=== PATIENT | female | born 1945 | race Two or more races ===

== ENCOUNTER 2022-08-31 18:30 | Emergency (ER) | payer OTHER ==
[~2022-08-31] VITALS: Ht 152.4 cm; Wt 67.7 kg
[2022-08-31 23:52] VITALS: BP 130/67
[2022-09-01] MEDS ORDERED: methylPREDNISolone SOD SUCC 125 MG/2 ML VL IM ONE
[2022-09-01] MEDS ORDERED: IPRATROPIUM BROM 0.5 MG/2.5ML INH SOL NEB ONE (01:00)
[2022-09-01] MEDS ORDERED: ALBUTEROL SULF 2.5 MG/0.5ML(0.5%) NEB SOLN NEB ONE (01:00)
[2022-09-01] MEDS ORDERED: IBUP600T27 PO (01:32)
[2022-09-01] MEDS ORDERED: AMOX-277 PO (01:32)
== END 2022-09-01 | disposition home or self-care (01) ==
LOC: ER 18:30
DX: H66.011 Acute suppurative otitis media with spontaneous rupture of ear drum, right ear (principal); R05.9 Cough, unspecified; E11.9 Type 2 diabetes mellitus without complications; R06.02 Shortness of breath; R07.89 Other chest pain; Z20.822 Contact with and (suspected) exposure to COVID-19
CPT/HCPCS: 36415; 71046; 87070; 87426; 87804; 87880; 94640; 96372; 99284; J2930; J7644